=== PATIENT | female | born 1965 | race Caucasian/White ===

== ENCOUNTER 2022-06-01 21:59 | Emergency (ER) | payer OTHER ==
[2022-06-01 22:20] VITALS: BP 114/74; PULSE 70; RESP 18; TEMP 98.1
[2022-06-01] MEDS ORDERED: predniSONE 50 MG TAB PO STA (22:26)
[2022-06-01] MEDS ORDERED: FAMOTIDINE 20 MG TAB PO STA (22:26)
--- NOTE | 2022-06-01 22:32 | ED ---
General Adult HPI - General Chief complaint: Allergic Reaction Stated complaint: Allergic Reaction Time Seen by Provider: 06/01/22 22:20 Source: patient, RN notes reviewed Mode of arrival: ambulatory Limitations: no limitations - History of Present Illness Initial comments: Patient is a pleasant 57-year-old female presenting to the emergency Department with concern for hives. Onset of symptoms was last night. Patient has taking Benadryl without much improvement. Patient does have history of similar symptoms once around 8 years ago however unclear why. No new medications, patient only takes Zoloft. No new foods or exposures. No swelling of the throat or tongue or lips. No dyspnea. - Related Data Previous Rx's Medication Instructions Recorded predniSONE [Deltasone] 20 mg PO BID #8 tab 06/01/22 Allergies Allergy/AdvReac Type Severity Reaction Status Date / Time Sulfa (Sulfonamide Allergy Nausea & Verified 06/01/22 22:20 Antibiotics) Vomiting & Diarrhea Review of Systems ROS Statement: Those systems with pertinent positive or pertinent negative responses have been documented in the HPI. ROS Other: All systems not noted in ROS Statement are negative. Constitutional: Denies: fever Eyes: Denies: eye pain ENT: Denies: ear pain, throat pain Respiratory: Denies: cough, dyspnea, wheezes Cardiovascular: Denies: chest pain Endocrine: Denies: fatigue Gastrointestinal: Denies: abdominal pain Genitourinary: Denies: dysuria Skin: Reports: as per HPI, rash, pruritus Past Medical History Past Medical History: No Reported History History of Any Multi-Drug Resistant Organisms: None Reported Past Surgical History: No Surgical Hx Reported Additional Past Surgical History / Comment(s): Biopsy Past Psychological History: Depression Smoking Status: Never smoker Past Alcohol Use History: None Reported Past Drug Use History: None Reported General Exam Limitations: no limitations General appearance: alert, in no apparent distress Head exam: Present: normocephalic Eye exam: Present: normal appearance ENT exam: Present: normal oropharynx, other (No signs of angioedema) Neck exam: Present: normal inspection Respiratory exam: Present: normal lung sounds bilaterally Cardiovascular Exam: Present: regular rate, normal rhythm GI/Abdominal exam: Present: soft. Absent: tenderness Extremities exam: Present: normal inspection Neurological exam: Present: alert Psychiatric exam: Present: normal affect, normal mood Skin exam: Present: urticaria (Diffuse) Course Vital Signs 06/01/22 22:17 Temperature 98.1 F Pulse Rate 70 Respiratory 18 Rate Blood Pressure 114/74 O2 Sat by Pulse 100 Oximetry Disposition Clinical Impression: Urticaria Disposition: HOME SELF-CARE Condition: Stable Instructions (If sedation given, give patient instructions): Urticaria (ED) Additional Instructions: Prescription for steroids provided. Continue [id number] Benadryl. May consider substituting [id number] Claritin or Sunitha instead. Return for any swelling of the throat or tongue or lips, difficulty breathing, worsening symptoms or other concerns. Prescriptions: predniSONE [Deltasone] 20 mg PO BID #8 tab Is patient prescribed a controlled substance at d/c from ED?: No Referrals: Richa Fernández MD [Primary Care Provider] - 1-2 days Time of Disposition: 22:30
== END 2022-06-01 23:05 | disposition home or self-care (01) ==
LOC: EC 21:59
DX: L50.9 Urticaria, unspecified (principal); Z88.2 Allergy status to sulfonamides
CPT/HCPCS: 99283; J7512

== ENCOUNTER → 2022-07-24 | Outpatient (CLI) | payer OTHER ==
[2022-07-24 11:13] LABS: T4, Free (Free Thyroxine) 1.19 ng/dL (0.800-1.800)
[2022-07-24 12:20] LABS: Thyroid Peroxidase Antibodies <9.0 U/mL (0.0-33.0)
== END | disposition home or self-care (01) ==
LOC: LABWHC1 07:13
PROVIDERS: ATTEND Allergy & Immunology
DX: E04.9 Nontoxic goiter, unspecified (principal); L50.9 Urticaria, unspecified
CPT/HCPCS: 36415; 82785; 84439; 84443; 84481; 86376; 86800

== ENCOUNTER → 2022-08-02 | Outpatient (CLI) | payer OTHER ==
[2022-08-02 18:20] LABS: Dog Dander IgE <0.10 kU/L; Peanut IgE <0.10 kU/L; Soybean IgE <0.10 kU/L; Walnut IgE (Food) <0.10 kU/L
== END | disposition home or self-care (01) ==
LOC: LABWHC1 06:56
PROVIDERS: ATTEND Allergy & Immunology
DX: T78.2XXA Anaphylactic shock, unspecified, initial encounter (principal)
CPT/HCPCS: 36415; 86001; 86003